=== PATIENT | male | born 1970 | race Caucasian/White ===

== ENCOUNTER 2017-03-08 13:27 | Emergency (ER) | payer OTHER ==
[~2017-03-08] VITALS: Ht 182.9 cm; Wt 95.3 kg
[2017-03-08 14:40] LABS: ABSOLUTE NEUTROPHILS 7.2 thou/uL (1.4-8.2); BASOPHILS 0.6 % (0.0-2.0); EOSINOPHILS 0.5 % (0.0-3.0); HEMOGLOBIN 11.1 gm/dL (14.0-18.0); LYMPHOCYTES 19.2 % (24.0-44.0); MCH 31.8 pg (26.0-34.0); MCHC 34.9 g/dL (28.0-37.0); MCV 91.3 fL (80.0-100.0); MONOCYTES 6.9 % (1.0-8.0); PLATELET COUNT 244 thou/uL (150-400); POLYS 72.8 % (36.0-66.0); RDW 12.8 % (10.5-14.5); WBC 9.9 thou/uL (4.0-11.0)
[2017-03-08 14:42] LABS: MANUAL DIFF NO
[2017-03-08 14:55] LABS: APTT 26.3 Seconds (24.5-32.8); INR 1.1; PROTIME 11.4 Seconds (9.3-11.4)
[2017-03-08 15:31] LABS: CALCIUM 8.4 mg/dL (8.5-10.1); CREATININE 0.6 mg/dL (0.7-1.3); POTASSIUM 4.4 mmol/L (3.5-5.1)
[2017-03-08] MEDS ORDERED: CORICIDIN HBP1 EAC2 PO (15:58)
[2017-03-08] MEDS ORDERED: FLONASE 0.05%50 MCG NASAL ×2 (15:58→15:59)
[2017-03-08 16:15] VITALS: BP 101/70
== END 2017-03-08 16:18 | disposition home or self-care (01) ==
LOC: ER 13:27
PROVIDERS: Emergency Medicine; Physician Assistant
DX: R04.0 Epistaxis (principal); J01.10 Acute frontal sinusitis, unspecified; J01.20 Acute ethmoidal sinusitis, unspecified; J01.00 Acute maxillary sinusitis, unspecified; D64.9 Anemia, unspecified; I10 Essential (primary) hypertension; E78.00 Pure hypercholesterolemia, unspecified